=== PATIENT | male | born 1970 | race Caucasian/White ===

== ENCOUNTER 2017-05-28 10:28 | Inpatient (IN) | payer OTHER ==
[2017-05-28] MEDS: NITROGLYCERIN 2% 1 GM OINT PKT TD (11:57)
[2017-05-28] MEDS: ASPIRIN 325 MG TAB PO (11:57)
[2017-05-28 12:07] LABS: ADD MAN DIFF? NO
[2017-05-28 12:14] LABS: ABNORMAL IP MESSAGE 1; BASOPHILS % 0.3 % (0.0-2.0); EOSINOPHILS % 0.1 % (0.0-7.0); HEMATOCRIT 45.3 % (42.0-52.0); HEMOGLOBIN 15.9 g/dl (14.0-18.0); LYMPHOCYTES # 0.2 10^3/ul (0.8-2.9); LYMPHOCYTES % 1.1 % (15.0-51.0); MEAN CORPUSCULAR HGB CONC 35.1 g/dl (32.0-37.0); MEAN CORPUSCULAR VOLUME 85.5 fl (82.0-101.0); MEAN PLATELET VOLUME 9.3 fl (7.4-10.4); MONOCYTE # 0.4 10^3/ul (0.3-0.9); MONOCYTES % 2.8 % (0.0-11.0); NEUTROPHIL # 14.8 10^3/ul (1.6-7.5); NEUTROPHILS % 95.4 % (39.0-77.0); PLATELET COUNT 277 10^3/UL (140-415); POSITIVE DIFF @See below
[2017-05-28 12:14] LABS: WHITE BLOOD COUNT 15.5 10^3/ul (4.8-10.8)
[2017-05-28 12:31] LABS: ALANINE AMINOTRANSFERASE 30 IU/L (13-69); ALBUMIN 4.8 g/dl (3.3-4.9); ALKALINE PHOSPHATASE 69 IU/L (42-121); ANION GAP 21 (8-16); ASPARTATE AMINO TRANSFERASE 31 IU/L (15-46); BILIRUBIN,INDIRECT 0.6 mg/dl (0-1.1); BILIRUBIN,TOTAL 0.6 mg/dl (0.2-1.3); BLOOD UREA NITROGEN 16 mg/dl (7-20); CARBON DIOXIDE 28 mmol/L (21-31); CHLORIDE 99 mmol/L (97-110); CREATININE 0.72 mg/dl (0.61-1.24); GLUCOSE 129 mg/dl (70-220); POTASSIUM 3.6 mmol/L (3.5-5.1); SODIUM 144 mmol/L (135-144)
[2017-05-28 12:50] LABS: TROPONIN-I < 0.012 ng/ml (0.00-0.12)
[2017-05-28] MEDS: LORAZEPAM 2 MG INJ IV ×2 (14:35→20:57)
[2017-05-28] MEDS: SOD CHLORIDE 0.9% 1,000 ML IV (14:45)
[2017-05-28] MEDS ORDERED: ACETAMINOPHEN 325 MG TAB PO (15:30)
[2017-05-28] MEDS ORDERED: NITROGLYCERIN (SL) 0.4 MG TAB SL (17:00)
[2017-05-28] MEDS ORDERED: NACL 0.9% 3 ML SYG IV (17:00)
[2017-05-28] MEDS: CHLORDIAZEPOXIDE 25 MG CAP PO (17:25)
[2017-05-28] MEDS: FOLIC ACID 1 MG TAB PO (17:25)
[2017-05-28] MEDS: NICOTINE (21 MG/24 HR) PATCH TRANSDERM (17:25)
[2017-05-28] MEDS: CYANOCOBALAMIN 500 MCG TAB PO (17:25)
[2017-05-28] MEDS: ONDANSETRON 4 MG INJ IV (17:25)
[2017-05-28 18:06] LABS: INR 0.89; PROTIME 12.1 Sec (11.9-14.9); PT RATIO 0.9
[2017-05-28 18:08] LABS: D-DIMER 720.88 ng/ml (<460)
[2017-05-28] MEDS: SOD CHLORIDE 0.9% 100 ML (19:00)
[2017-05-28] MEDS: IOHEXOL 100 ML (19:01)
[2017-05-28 19:50] LABS: CREATINE KINASE 63 IU/L (23-200)
[2017-05-28 20:03] LABS: CK INDEX 0.6
[2017-05-28 20:04] LABS: TROPONIN-I < 0.012 ng/ml (0.00-0.12)
[2017-05-28] MEDS: ATORVASTATIN 40 MG TAB PO (20:58)
[2017-05-28] MEDS: KETOROLAC 15 MG INJ IV (20:58)
[2017-05-28] MEDS: FAMOTIDINE 20 MG INJ IV (21:02)
[2017-05-29] MEDS: CHLORDIAZEPOXIDE 25 MG CAP PO ×2 (00:49→14:58)
[2017-05-29 01:13] LABS: CREATINE KINASE 74 IU/L (23-200)
[2017-05-29 01:27] LABS: CK INDEX 0.7; TROPONIN-I < 0.012 ng/ml (0.00-0.12)
[2017-05-29] MEDS: ONDANSETRON 4 MG INJ IV (06:37)
[2017-05-29 06:54] LABS: ADD MAN DIFF? NO
[2017-05-29 07:03] LABS: ABNORMAL IP MESSAGE 1; BASOPHILS % 0.6 % (0.0-2.0); EOSINOPHILS # 0.2 10^3/ul (0.0-0.5); EOSINOPHILS % 2.8 % (0.0-7.0); HEMATOCRIT 38.4 % (42.0-52.0); HEMOGLOBIN 13.5 g/dl (14.0-18.0); LYMPHOCYTES # 0.5 10^3/ul (0.8-2.9); LYMPHOCYTES % 9.8 % (15.0-51.0); MEAN CORPUSCULAR HEMOGLOBIN 30.2 pg (29.0-33.0); MEAN CORPUSCULAR HGB CONC 35.2 g/dl (32.0-37.0); MEAN CORPUSCULAR VOLUME 85.9 fl (82.0-101.0); MEAN PLATELET VOLUME 9.4 fl (7.4-10.4); MONOCYTE # 0.7 10^3/ul (0.3-0.9); MONOCYTES % 12.7 % (0.0-11.0); NEUTROPHILS % 73.7 % (39.0-77.0); PLATELET COUNT 234 10^3/UL (140-415); POSITIVE DIFF @See below; RED BLOOD COUNT 4.47 10^6/ul (4.70-6.10)
[2017-05-29 07:03] LABS: WHITE BLOOD COUNT 5.4 10^3/ul (4.8-10.8)
[2017-05-29 07:16] LABS: HEMOGLOBIN A1C 5.2 % (0-5.9)
[2017-05-29 07:24] LABS: CHOL/HDL RATIO 1.5 RATIO; HDL CHOLESTEROL 68 mg/dl (27-67); LDL CHOLESTEROL,CALCULATED 28 mg/dl; TRIGLYCERIDES 43 mg/dl (0-149)
[2017-05-29 07:24] LABS: CHOLESTEROL 105 mg/dl (100-200)
[2017-05-29 07:29] LABS: ALANINE AMINOTRANSFERASE 36 IU/L (13-69); ALBUMIN 3.7 g/dl (3.3-4.9); ALBUMIN/GLOBULIN RATIO 1.54; ALKALINE PHOSPHATASE 48 IU/L (42-121); ANION GAP 16 (8-16); ASPARTATE AMINO TRANSFERASE 35 IU/L (15-46); BILIRUBIN,INDIRECT 0.5 mg/dl (0-1.1); BILIRUBIN,TOTAL 0.5 mg/dl (0.2-1.3); BLOOD UREA NITROGEN 13 mg/dl (7-20); CALCIUM 7.7 mg/dl (8.4-10.2); CARBON DIOXIDE 26 mmol/L (21-31); CHLORIDE 102 mmol/L (97-110); CREATININE 0.83 mg/dl (0.61-1.24); GLUCOSE 96 mg/dl (70-220); MAGNESIUM 1.9 mg/dl (1.7-2.5); POTASSIUM 3.3 mmol/L (3.5-5.1); SODIUM 141 mmol/L (135-144); TOTAL PROTEIN 6.1 g/dl (6.1-8.1)
[2017-05-29] MEDS: FAMOTIDINE 20 MG INJ IV (08:07)
[2017-05-29] MEDS: ENOXAPARIN 40 MG/0.4 ML SYG SC (08:09)
[2017-05-29 08:54] LABS: THYROID STIMULATING HORMONE < 0.015 MIU/L (0.465-4.680)
[2017-05-29] MEDS: FOLIC ACID 1 MG TAB PO (09:00)
[2017-05-29] MEDS: CYANOCOBALAMIN 500 MCG TAB PO (09:00)
[2017-05-29] MEDS: MULTIVITAMINS/MINERALS TAB PO (09:00)
[2017-05-29] MEDS: ASPIRIN 81 MG TAB PO (09:00)
[2017-05-29] MEDS: PROPRANOLOL 10 MG TAB PO (10:00)
[2017-05-30] MEDS ORDERED: INFLUENZA VIRUS VACCINE 0.5 ML SYG IM* (09:00)
== END 2017-05-29 15:38 | disposition left against medical advice (07) | DRG 313 ==
LOC: TEL 15:17 → E/R 10:28
DX: R07.9 Chest pain, unspecified (principal); I10 Essential (primary) hypertension; E05.90 Thyrotoxicosis, unspecified without thyrotoxic crisis or storm; F17.200 Nicotine dependence, unspecified, uncomplicated; F10.10 Alcohol abuse, uncomplicated; R00.2 Palpitations
CPT/HCPCS: 36415; 71045; 71275; 80053; 80061; 82550; 82553; 83036; 83735; 84100; 84443; 84484; 85025; 85378; 85610; 87081; 93005; 96374; 96375; 96376; 99285-25